=== PATIENT | male | born 1955 | race Caucasian/White ===

== ENCOUNTER 2017-06-29 12:41 | Day surgery (SDC) | payer BC ==
[~2017-06-29] VITALS: Ht 175.3 cm; Wt 99.9 kg
[~2017-06-29 12:41] MED LIST: ACYC5TO15G TOP; ADULT ASPIRIN R81 MG PO; AMLO5 PO; ATOR40TA PO; Adult Low Dose81 MG PO; CLOP75 PO; CYCL10; DIAZ5 PO; EFFIENT10 MG PO; GLUC500 PO; GLUCOSAMINE &1 EACH PO; HYDACE7.5; IBUP800 PO; LANS30EC PO; METO25ER PO; MULVIT PO; Multiple Vitam1 EAC1 PO; NAPR500; NAPR500 PO; NITR.4SL SL; Nitrostat0.4 MG SL; OXYACE5T PO; PAIN RELIE500 MG/15; PANT40; PROM25 PO; Prevacid Soluta30 MG PO; RANO500T PO; RXOXYACE PO; TRIA80TC TOP
== END 2017-06-29 15:50 | disposition home or self-care (01) ==
LOC: ORSCSDS 12:41
PROVIDERS: Podiatrist
PROC: 0QBN0ZZ Excision of Right Metatarsal, Open Approach (ICD-10-PCS; principal; 2017-06-29 14:00)
DX: M20.21 Hallux rigidus, right foot (principal); M77.41 Metatarsalgia, right foot; I25.10 Atherosclerotic heart disease of native coronary artery without angina pectoris; E78.5 Hyperlipidemia, unspecified; G47.33 Obstructive sleep apnea (adult) (pediatric); Z87.891 Personal history of nicotine dependence; Z79.899 Other long term (current) drug therapy; Z79.82 Long term (current) use of aspirin
CPT/HCPCS: J0690; J1100; J1885; J2250; J2405; J3010; J7120

== ENCOUNTER 2020-07-20 09:54 | Day surgery (SDC) | payer BC ==
[~2020-07-20] VITALS: Ht 175.3 cm; Wt 100.5 kg
[~2020-07-20 09:54] MED LIST changes: +DULO60 PO; +OZEMPIC0.25 MG/0. SC; +SILD50TA PO
--- NOTE | 2020-07-20 14:03 | NUR ---
PT BACK TO RECOVERY ROOM VIA BED AFTER PROCEDURE. AWAKE AND ALERT, DENIES ANY PAIN OR DISCOMFORT. RIGHT GROIN SITE AND LEFT PEDAL SITES SOFT, WITH NO BLEEDING OR SWELLING. CALL LIGHT IN REACH.
--- NOTE | 2020-07-20 14:35 | NUR ---
PT'S CALLED AND UPDATED ABOUT PROCEDURE, RESULTS, AND FIELD SERVICE SUPERVISOR TIME FOR PATIENT. PATIENT DOZING INTERMITTENTLY, CONTINUES TO DENY DISCOMFORT.
--- NOTE | 2020-07-20 15:40 | NUR ---
HEAD OF BED RAISED TO 45 DEGREES FOR PT COMFORT AND C/O SOME BACK DISCOMFORT. PT EATING LUNCH, RIGHT GROIN AND LEFT PEDAL SITES CLEAN AND DRY, NO SWELLING OR DISCOMFORT TO EITHER SITE.
--- NOTE | 2020-07-20 16:45 | NUR ---
IV DC'D, CATH INTACT. PT AND GIVEN DC INSTRUCTIONS, VERBALIZED UNDERSTANDING. PT HAS AMBULATED TO BATHROOM WITHOUT DIFFICULTY. RIGHT GROIN AND LEFT PEDAL SITES SOFT AND NON-TENDER. NO BLEEDING OR SWELLING AT EITHER SITE.
[2020-09-06] MEDS ORDERED: OZEMPIC0.25 MG/0. SC (14:23)
== END 2020-07-20 15:15 | disposition home or self-care (01) ==
LOC: MHTC 09:54
DX: E11.51 Type 2 diabetes mellitus with diabetic peripheral angiopathy without gangrene (principal); I70.213 Atherosclerosis of native arteries of extremities with intermittent claudication, bilateral legs; F17.200 Nicotine dependence, unspecified, uncomplicated; I25.10 Atherosclerotic heart disease of native coronary artery without angina pectoris; K21.9 Gastro-esophageal reflux disease without esophagitis; E78.5 Hyperlipidemia, unspecified; I10 Essential (primary) hypertension; E11.40 Type 2 diabetes mellitus with diabetic neuropathy, unspecified; Z88.1 Allergy status to other antibiotic agents; Z95.5 Presence of coronary angioplasty implant and graft; Z98.1 Arthrodesis status; Z85.831 Personal history of malignant neoplasm of soft tissue; Z92.3 Personal history of irradiation; Z79.899 Other long term (current) drug therapy; Z79.82 Long term (current) use of aspirin
CPT/HCPCS: 37229; 75625; 75716; 75774; 76937; 85347; 99152; 99153; C1714; C1757; C1760; C1769; C1887; C1894; C9766; J1644; J2250; J3010; J7030; J7040; J7050; Q9967

== ENCOUNTER 2020-09-07 09:38 | Day surgery (SDC) | payer BC ==
[~2020-09-07] VITALS: Ht 175.3 cm; Wt 96.0 kg
[2020-09-07 10:10] LABS: BASOPHILS ABSOLUTE AUTO 0.06 K/mm3 (0.00-0.23); BASOPHILS PERCENT AUTO 1 % (0-2); EOSINOPHILS ABSOLUTE AUTO 0.37 K/mm3 (0.00-0.68); EOSINOPHILS PERCENT AUTO 6 % (0-6); Hemoglobin 14.1 g/dL (13.5-17.5); IMMATURE GRAN ABSOLUTE AUTO 0.01 K/mm3 (0.00-0.10); IMMATURE GRAN PERCENT AUTO 0 % (0-1); LYMPHOCYTES ABSOLUTE AUTO 0.91 K/mm3 (0.84-5.20); LYMPHOCYTES PERCENT AUTO 15 % (21-46); MONOCYTES ABSOLUTE AUTO 0.54 K/mm3 (0.16-1.47); MONOCYTES PERCENT AUTO 9 % (4-13); Mean Corpuscular HGB 29.9 pg (26.0-34.0); Mean Corpuscular HGB Conc 33.6 g/dL (31.5-36.5); Mean Corpuscular Volume 89 fL (80-100); Mean Platelet Volume 8.9 fL (9.1-12.4); NEUTROPHILS ABSOLUTE AUTO 4.39 K/mm3 (1.96-9.15); NEUTROPHILS PERCENT AUTO 70 % (41-73); Platelet Count 254 K/mm3 (150-400); RDW Coefficient Variation 12.7 % (11.7-14.2); RDW Standard Deviation 41.5 fL (35.1-46.3); Red Blood Cell Count 4.71 M/mm3 (4.30-5.90); White Blood Cell Count 6.28 K/mm3 (4.00-11.30)
[2020-09-07 10:23] LABS: International Normalized Ratio 0.92
[2020-09-07 10:28] LABS: Alanine Aminotransfer (ALT/SGP 26 U/L (12-78); Albumin, Blood 3.8 g/dL (3.4-5.0); Alk Phos 115 U/L (50-136); Anion Gap 4 mmol/L (6-16); Aspartate Aminotrans (AST/SGOT 15 U/L (12-37); Bilirubin, Total 0.3 mg/dL (0.1-1.0); Blood Urea Nitrogen 18 mg/dL (8-24); Bun/Creatinine Ratio 22.5 (12.0-20.0); CO2, Blood 28 mmol/L (21-32); Calcium, Blood 8.8 mg/dL (8.5-10.1); Chloride, Blood 105 mmol/L (98-108); Globulin, Blood 3.8 g/dL (2.2-4.0); Glomerular Filtration Rate >60 (60-); Glucose, Blood 140 mg/dL (70-99); Potassium, Blood 4.2 mmol/L (3.5-5.5); Sodium, Blood 137 mmol/L (136-145); Total Protein, Blood 7.6 g/dL (6.4-8.2)
[2020-09-07] MEDS ORDERED: CLOP75 PO (12:55)
[2020-09-07] MEDS ORDERED: XARELTO2.5 MG PO (13:04)
--- NOTE | 2020-09-07 14:08 | NUR ---
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
--- NOTE | 2020-09-07 15:39 | NUR ---
DISCHARGE PT AMBULATED TO RESTROOM AND DRESSED SELF WITH NO COMPLICATIONS. R FEMORAL SITE STABLE WITH NO SIGNS OF BLEEDING, OOZING OR HEMATOMA NOTED. PT STATES HIS UNDERSTANDING OF SITE CARE AND DISCHARGE INSTRUCTIONS AND DENIES ANY QUESTIONS RO CONCERNS. IV DCD WITH CATH INTACT. VSS. PT TAKEN TO EXIT VIA WHEELCHAIR BY VOLUNTEER WHWERE AWAITS WITH VEHICLE.
== END 2020-09-07 15:30 | disposition home or self-care (01) ==
LOC: MHTC 09:38
PROVIDERS: Radiology Diagnostic Radiology
DX: E11.51 Type 2 diabetes mellitus with diabetic peripheral angiopathy without gangrene (principal); I70.223 Atherosclerosis of native arteries of extremities with rest pain, bilateral legs; E11.40 Type 2 diabetes mellitus with diabetic neuropathy, unspecified; F17.210 Nicotine dependence, cigarettes, uncomplicated; I25.10 Atherosclerotic heart disease of native coronary artery without angina pectoris; K21.9 Gastro-esophageal reflux disease without esophagitis; E78.5 Hyperlipidemia, unspecified; I10 Essential (primary) hypertension; Z90.49 Acquired absence of other specified parts of digestive tract; Z79.82 Long term (current) use of aspirin; Z79.899 Other long term (current) drug therapy
CPT/HCPCS: 37225; 75716; 75774; 76937; 80053; 85025; 85347; 85610; 99152; 99153; C1714; C1725; C1760; C1769; C1884; C1887; C1894; C2623; J1644; J2250; J3010; J7030; J7050; Q9967

== ENCOUNTER 2020-10-15 10:14 | Day surgery (SDC) | payer BC ==
[~2020-10-15] VITALS: Ht 175.3 cm; Wt 98.5 kg
[~2020-10-15 10:14] MED LIST changes: +XARELTO2.5 MG PO
--- NOTE | 2020-10-15 12:26 | NUR ---
10/15/20 1226 Osman Fowler PEPWAGNER 20MG IVP GIVEN PER ANESTHESIA ORDERS
--- NOTE | 2020-10-15 12:49 | NUR ---
10/15/20 1249 Ghazal Hwang BUPIVACAINE 0.5% 30 MLS MIXED W/ EPI 0.15 ML PER ORDER TO MAKE BUPIVACAINE 0.5% 1:200,000 FOR INJECTION AT OPSITE BY DR BAIN. [facility]
--- NOTE | 2020-10-15 13:40 | NUR ---
10/15/20 1340 Vanesa Henderson PT STATES PAIN 06/23 AND WOULD LIKE PO PAIN MEDICATION AT THIS TIME.
== END 2020-10-15 14:11 | disposition home or self-care (01) ==
LOC: ORSCSDS 10:14
PROVIDERS: Podiatrist Foot & Ankle Surgery
PROC: 0QSN04Z Reposition Right Metatarsal with Internal Fixation Device, Open Approach (ICD-10-PCS; principal; 2020-10-15 11:30)
DX: S92.355A Nondisplaced fracture of fifth metatarsal bone, left foot, initial encounter for closed fracture (principal); I10 Essential (primary) hypertension; I25.10 Atherosclerotic heart disease of native coronary artery without angina pectoris; K21.9 Gastro-esophageal reflux disease without esophagitis; E11.9 Type 2 diabetes mellitus without complications; E66.9 Obesity, unspecified; Z68.31 Body mass index [BMI] 31.0-31.9, adult; Z79.82 Long term (current) use of aspirin; Z79.899 Other long term (current) drug therapy
CPT/HCPCS: 82947; A9270; C1713; J0171; J0690; J1100; J2405; J2704; J3010

== ENCOUNTER → 2021-05-05 | Outpatient (CLI) | payer BC ==
[2021-05-05 18:45] LABS: BASOPHILS ABSOLUTE AUTO 0.03 K/mm3 (0.00-0.23); BASOPHILS PERCENT AUTO 0 % (0-2); EOSINOPHILS ABSOLUTE AUTO 0.24 K/mm3 (0.00-0.68); EOSINOPHILS PERCENT AUTO 3 % (0-6); Hematocrit 46.1 % (37.0-53.0); Hemoglobin 15.8 g/dL (13.5-17.5); IMMATURE GRAN ABSOLUTE AUTO 0.02 K/mm3 (0.00-0.10); IMMATURE GRAN PERCENT AUTO 0 % (0-1); LYMPHOCYTES ABSOLUTE AUTO 1.08 K/mm3 (0.84-5.20); LYMPHOCYTES PERCENT AUTO 16 % (21-46); MONOCYTES ABSOLUTE AUTO 0.62 K/mm3 (0.16-1.47); MONOCYTES PERCENT AUTO 9 % (4-13); Mean Corpuscular HGB 29.3 pg (26.0-34.0); Mean Corpuscular HGB Conc 34.3 g/dL (31.5-36.5); Mean Corpuscular Volume 86 fL (80-100); Mean Platelet Volume 9.3 fL (9.1-12.4); NEUTROPHILS ABSOLUTE AUTO 4.98 K/mm3 (1.96-9.15); NEUTROPHILS PERCENT AUTO 72 % (41-73); Platelet Count 292 K/mm3 (150-400); RDW Coefficient Variation 12.6 % (11.7-14.2); RDW Standard Deviation 38.8 fL (35.1-46.3); Red Blood Cell Count 5.39 M/mm3 (4.30-5.90); White Blood Cell Count 6.97 K/mm3 (4.00-11.30)
[2021-05-05 18:54] LABS: Anion Gap 12 mmol/L (6-16); Blood Urea Nitrogen 14 mg/dL (8-24); Bun/Creatinine Ratio 14.3 (12.0-20.0); CO2, Blood 27 mmol/L (21-32); Calcium, Blood 9.6 mg/dL (8.5-10.1); Chloride, Blood 99 mmol/L (98-108); Creatinine, Blood 0.98 mg/dL (0.60-1.20); Glomerular Filtration Rate >60 (60-); Glucose, Blood 322 mg/dL (70-99); Potassium, Blood 4.8 mmol/L (3.5-5.5); Sodium, Blood 138 mmol/L (136-145)
== END | disposition home or self-care (01) ==
LOC: LAB SHORT 18:39
PROVIDERS: Physician Assistant Surgical
DX: E86.0 Dehydration (principal)
CPT/HCPCS: 80048; 85025

== ENCOUNTER 2021-08-02 09:49 | Day surgery (SDC) | payer BC ==
[~2021-08-02] VITALS: Ht 175.3 cm; Wt 96.0 kg
[~2021-08-02 09:49] MED LIST changes: +XARELTO2.5 M1 PO
[2021-08-02] MEDS ORDERED: ASCO500 PO (10:54)
[2021-08-02] MEDS ORDERED: ACET500 PO (10:54)
[2021-08-02] MEDS ORDERED: TYLENOL PM EXS1 EACH PO (10:54)
[2021-08-02] MEDS ORDERED: IBUP400 PO (10:55)
[2021-08-02] MEDS ORDERED: ISOSORBIDE MONO60 MG PO (12:12)
--- NOTE | 2021-08-02 12:20 | NUR ---
ASSUMED CARE OF PT. PT AWAKE AND CONVERSING APPROPRIATELY; DENIES CHEST PAIN POST PROCEDURE. MONITOR SR 60'S, B/P 123/88, AFEBRILE, SPO2 96% RA. R RADIAL SITE NO SWELLING/HEMATOMA, TR BAND IN PLACE; RUE POSITIVE PLEUTH POST TR BAND PLACEMENT. PT'S AT BEDSIDE ATTENTIVE. DR LEW IN TO DISCUSS PROCEDURE RESULTS WITH PT AND .
--- NOTE | 2021-08-02 15:20 | NUR ---
PT AMB TO BATHROOM WITHOUT ISSUE, SITE UNCHANGED.
--- NOTE | 2021-08-02 15:25 | NUR ---
PT DRESSED SELF WITHOUT ISSUE, SITE UNCHANGED. TR BAND REMOVED, CLOTH DOT AND WRIST IMMOBILIZER PLACED; IV REMOVED-CANNULA INTACT. PT DECLINED SLING.
--- NOTE | 2021-08-02 15:34 | NUR ---
PT AND RECEIVED DISCHARGE INSTRUCTIONS, MED LIST AND AFTER CARE INSTRUCTIONS; VERBALIZED GOOD UNDERSTANDING. PT LEFT FACILITY VIA W/C, CONDITION STABLE.
== END 2021-08-02 15:34 | disposition home or self-care (01) ==
LOC: MHTC 09:49
DX: I25.118 Atherosclerotic heart disease of native coronary artery with other forms of angina pectoris (principal); R06.00 Dyspnea, unspecified; I10 Essential (primary) hypertension; E78.5 Hyperlipidemia, unspecified; E11.69 Type 2 diabetes mellitus with other specified complication; R94.39 Abnormal result of other cardiovascular function study; K21.9 Gastro-esophageal reflux disease without esophagitis; E11.51 Type 2 diabetes mellitus with diabetic peripheral angiopathy without gangrene; E66.9 Obesity, unspecified; Z88.8 Allergy status to other drugs, medicaments and biological substances; Z87.891 Personal history of nicotine dependence
CPT/HCPCS: 76937; 93454; 99152; 99153; C1769; C1887; C1894; J1644; J2250; J3010; J7030; J7040; Q9967

== ENCOUNTER → 2021-09-14 | Outpatient (CLI) | payer BC ==
[~2021-09-14] MED LIST changes: +ACET500 PO; +ASCO500 PO; +CEPH500 PO; +IBUP400 PO; +ISOSORBIDE MONO60 MG PO; +TYLENOL PM EXS1 EACH PO
== END | disposition home or self-care (01) ==
LOC: LAB 14:49 → LAB SHORT 14:49
DX: R30.0 Dysuria (principal)
CPT/HCPCS: 87086

== ENCOUNTER → 2022-11-15 | Outpatient (CLI) | payer BC, MEDICARE | LOC: LAB SHORT 11:45 → LAB 11:45 | DX: L72.3 Sebaceous cyst (principal) | CPT/HCPCS: 87070; 87075; 87205 ==

== ENCOUNTER 2024-05-26 11:41 | Emergency (ER) | payer BC, MEDICARE ==
[~2024-05-26] VITALS: Ht 175.3 cm; Wt 101.3 kg
[~2024-05-26 11:41] MED LIST changes: +OZEMPIC1 MG/0.72 SC
[2024-05-26 14:16] LABS: BASOPHILS ABSOLUTE AUTO 0.03 K/mm3 (0.00-0.23); BASOPHILS PERCENT AUTO 0 % (0-2); EOSINOPHILS ABSOLUTE AUTO 0.29 K/mm3 (0.00-0.68); EOSINOPHILS PERCENT AUTO 4 % (0-6); Hematocrit 40.4 % (37.0-53.0); Hemoglobin 13.8 g/dL (13.5-17.5); IMMATURE GRAN ABSOLUTE AUTO 0.01 K/mm3 (0.00-0.10); IMMATURE GRAN PERCENT AUTO 0 % (0-1); LYMPHOCYTES ABSOLUTE AUTO 1.11 K/mm3 (0.84-5.20); LYMPHOCYTES PERCENT AUTO 16 % (21-46); MONOCYTES ABSOLUTE AUTO 0.67 K/mm3 (0.16-1.47); MONOCYTES PERCENT AUTO 10 % (4-13); Mean Corpuscular HGB 30.4 pg (26.0-34.0); Mean Corpuscular HGB Conc 34.2 g/dL (31.5-36.5); Mean Corpuscular Volume 89 fL (80-100); Mean Platelet Volume 8.9 fL (9.1-12.4); NEUTROPHILS ABSOLUTE AUTO 4.75 K/mm3 (1.96-9.15); NEUTROPHILS PERCENT AUTO 69 % (41-73); Platelet Count 277 K/mm3 (150-400); RDW Coefficient Variation 13.3 % (11.7-14.2); RDW Standard Deviation 43.5 fL (35.1-46.3); Red Blood Cell Count 4.54 M/mm3 (4.30-5.90); White Blood Cell Count 6.86 K/mm3 (4.00-11.30)
[2024-05-26] MEDS ORDERED: Dose Adjust by Pharmacy XX STA (14:16)
[2024-05-26] MEDS ORDERED: Heparin Sodium,Porcine/0.5 NS 500 ML IV SCH (14:20)
[2024-05-26] MEDS ORDERED: FINA5 PO (14:22)
[2024-05-26] MEDS ORDERED: RANOLAZINE ER500 M2 PO (14:23)
[2024-05-26] MEDS ORDERED: TAMSULOSIN HCL0.4 M1 PO (14:24)
[2024-05-26] MEDS ORDERED: PEPCID40 MG PO (14:25)
[2024-05-26] MEDS ORDERED: TOUJEO MAX300 UNIT/2 SC (14:26)
[2024-05-26 14:30] VITALS: BP 104/71
[2024-05-26 14:31] LABS: Prothrombin Time Results 10.7 Sec (9.7-11.5)
[2024-05-26 14:44] LABS: Albumin, Blood 3.9 g/dL (3.4-5.0); Bilirubin, Total 0.7 mg/dL (0.1-1.0); Bun/Creatinine Ratio 20.7 (12.0-20.0); Calcium, Blood 9.3 mg/dL (8.5-10.1); Creatinine, Blood 0.97 mg/dL (0.60-1.20); Globulin, Blood 3.9 g/dL (2.2-4.0); Potassium, Blood 4.5 mmol/L (3.5-5.5); Total Protein, Blood 7.8 g/dL (6.4-8.2)
[2024-05-26] MEDS ORDERED: Heparin Sodium 5000 Units/ML 1ML MDV IV ONE (14:50)
== END 2024-05-26 15:20 | disposition home or self-care (01) ==
LOC: ER 11:41
PROVIDERS: Physician Assistant
DX: I74.3 Embolism and thrombosis of arteries of the lower extremities (principal); Z87.891 Personal history of nicotine dependence
CPT/HCPCS: 80053; 85025; 85610; 85730; 93926; 99284-25; J1644

== ENCOUNTER → 2024-08-07 | Outpatient (CLI) | payer BC, MEDICARE ==
[~2024-08-07] MED LIST changes: +FINA5 PO; +PEPCID40 MG PO; +RANOLAZINE ER500 M2 PO; +TAMSULOSIN HCL0.4 M1 PO; +TOUJEO MAX300 UNIT/2 SC
== END ==
LOC: LAB SHORT 10:47 → LAB 10:47
DX: L03.116 Cellulitis of left lower limb (principal)
CPT/HCPCS: 87070; 87075; 87077; 87147; 87186; 87205

== ENCOUNTER 2025-01-21 17:13 | Emergency (ER) | payer MEDICARE, OTHER ==
[~2025-01-21] VITALS: Ht 175.3 cm; Wt 99.8 kg
[2025-01-21 18:12] LABS: BASOPHILS ABSOLUTE AUTO 0.02 K/mm3 (0.00-0.23); BASOPHILS PERCENT AUTO 0 % (0-2); EOSINOPHILS ABSOLUTE AUTO 0.28 K/mm3 (0.00-0.68); EOSINOPHILS PERCENT AUTO 5 % (0-6); Hematocrit 41.7 % (37.0-53.0); Hemoglobin 13.8 g/dL (13.5-17.5); IMMATURE GRAN ABSOLUTE AUTO 0.02 K/mm3 (0.00-0.10); IMMATURE GRAN PERCENT AUTO 0 % (0-1); LYMPHOCYTES ABSOLUTE AUTO 1.20 K/mm3 (0.84-5.20); LYMPHOCYTES PERCENT AUTO 21 % (21-46); MONOCYTES ABSOLUTE AUTO 0.58 K/mm3 (0.16-1.47); MONOCYTES PERCENT AUTO 10 % (4-13); Mean Corpuscular HGB Conc 33.1 g/dL (31.5-36.5); Mean Corpuscular Volume 90 fL (80-100); NEUTROPHILS ABSOLUTE AUTO 3.59 K/mm3 (1.96-9.15); NEUTROPHILS PERCENT AUTO 63 % (41-73); NRBC ABSOLUTE 0.00 K/mm3 (0.00-0.02); NRBC Auto 0.0 /100 WBC (0.0-0.2); Platelet Count 289 K/mm3 (150-400); RDW Coefficient Variation 13.2 % (11.7-14.2); RDW Standard Deviation 43.8 fL (35.1-46.3)
[2025-01-21 18:36] LABS: Alanine Aminotransfer (ALT/SGP 35.0 U/L (12-78); Albumin, Blood 3.8 g/dL (3.4-5.0); Albumin/Globulin Ratio 0.8 (0.8-1.8); Anion Gap 5.0 mmol/L (3-11); Aspartate Aminotrans (AST/SGOT 17.0 U/L (12-37); Bilirubin, Total 0.6 mg/dL (0.1-1.0); Blood Urea Nitrogen 17.0 mg/dL (8-24); CO2, Blood 29.0 mmol/L (21-32); Calcium, Blood 9.5 mg/dL (8.5-10.1); Chloride, Blood 102.0 mmol/L (98-108); Creatinine, Blood 0.93 mg/dL (0.60-1.20); Globulin, Blood 4.6 g/dL (2.2-4.0); Glucose, Blood 191.0 mg/dL (70-99); Potassium, Blood 4.3 mmol/L (3.5-5.5); Sodium, Blood 132.0 mmol/L (136-145); Total Protein, Blood 8.4 g/dL (6.4-8.2)
[2025-01-21 21:21] VITALS: BP 124/81
[2025-01-21] MEDS ORDERED: CEPH500 PO (22:58)
== END 2025-01-21 23:18 | disposition home or self-care (01) ==
LOC: ER 17:13
PROVIDERS: Student in an Organized Health Care Education/Training Program
DX: L03.116 Cellulitis of left lower limb (principal); E87.1 Hypo-osmolality and hyponatremia; Z79.01 Long term (current) use of anticoagulants; Z79.899 Other long term (current) drug therapy; Z79.4 Long term (current) use of insulin; Z87.891 Personal history of nicotine dependence
CPT/HCPCS: 80053; 83605; 85025; 93971; 99284-25; A9270